=== PATIENT | female | born 1955 | race Caucasian/White ===

== ENCOUNTER 2017-02-10 19:32 | Emergency (ER) | payer MEDICAID ==
[~2017-02-10] VITALS: Ht 165.1 cm; Wt 101.6 kg
[~2017-02-10 19:32] MED LIST: ACTOS30 MG PO; ALBUTEROL0.09 MG/A2 INH; AMARYL2 MG PO; ARICEPT10 MG PO; ATARAX25 MG PO; BENTYL10 MG PO; DEXILANT60 M1 PO; EC NAPROSYN500 MG PO; EFFEXOR XR150 MG PO; EFFEXOR XR75 M1 PO; FLEXERIL5 MG PO; FLOVENT 220 M220 MCG INH; GLIMEPIRIDE4 M1 PO; HYDROCODONE BIT1 T11 PO; JANUVIA100 MG PO; JARDIANCE10 MG PO; KEFLEX500 MG PO; KENALOG 0.025%15 GM PO; LEVEMIR10 ML SC; LOMOTIL 0.025 M1 TA1 PO; Lopressor25 MG PO; MELOXICAM7.5 MG PO; NIASPAN500 MG PO; PEPCID20 MG PO; PRAVACHOL20 MG PO; PREDNICOT20 MG PO; PREDNISONE20 MG PO; PREDNISONE50 MG PO; TRILIPIX45 M1 PO; VISTARIL25 M1 PO; VITAMIN D2400 IU PO; XANAX0.25 MG PO; ZITHROMAX250 MG PO; ZOLOFT100 MG PO; ZOLPIDEM5 MG PO; ZYRTEC10 M1 PO
[2017-02-10] MEDS ORDERED: IRON325 M2 PO (19:59)
[2017-02-10] MEDS ORDERED: DITROPAN XL5 MG PO (20:00)
[2017-02-10] MEDS ORDERED: FENOFIBRATE160 MG PO (20:01)
[2017-02-10] MEDS ORDERED: PANTOPRAZOLE SO20 MG PO (20:02)
[2017-02-10] MEDS ORDERED: PRAVACHOL40 MG PO (20:02)
[2017-02-10] MEDS ORDERED: ARICEPT10 M1 PO (20:04)
[2017-02-10] MEDS ORDERED: ABILIFY10 MG PO (20:04)
[2017-02-10] MEDS ORDERED: VITAMIN D1000 IU PO (20:05)
[2017-02-10] MEDS ORDERED: ASPIR LOW81 MG PO (20:05)
[2017-02-10] MEDS ORDERED: NOVOLOG FLEX100 U/ML SC (20:09)
[2017-02-10 20:40] LABS: HEMATOCRIT 44.9 % (37.0-47.0); HEMOGLOBIN 15.1 g/dl (12.0-16.0); MEAN CELL VOLUME 93.9 fl (81.0-99.0); MEAN CORPUSCULAR HGB 31.6 pg (27.0-31.0); MEAN CORPUSCULAR HGB CONC 33.6 g/dl (33.0-37.0); MEAN PLATELET VOLUME 9.5 fl (9.6-12.3); PLATELET COUNT AUTOMATED 291 10*3/uL (130-400); RED BLOOD COUNT 4.78 10*6/uL (4.10-5.10); RED CELL DISTRI WIDTH 14.1 % (0-14.5)
[2017-02-10 20:55] LABS: ALBUMIN 3.9 gm/dl (3.1-4.5); ALKALINE PHOSPHATASE 97 U/L (45-117); BILIRUBIN, TOTAL 0.3 mg/dl (0.2-1.0); BUN 13 mg/dl (7-24); CARBON DIOXIDE 25 mmol/L (21-32); CHLORIDE 92 mmol/L (98-107); EST GLOM FILT AFRICAN AMERICAN > 60 ml/min; GLUCOSE 251 mg/dL (65-99); POTASSIUM 4.1 mmol/L (3.5-5.1); SGOT/AST 22 IU/L (3-35); SGPT/ALT 24 U/L (12-78); SODIUM 133 mmol/L (136-145); TOTAL PROTEIN 8.1 gm/dL (6.4-8.2)
[2017-02-10 21:01] LABS: EOSINOPHIL # 0.6 10*3/uL (0-0.4); EOSINOPHILS 4 % (1-4); LYMPHOCYTE # 5.3 10*3/uL (1.3-4.4); MONOCYTE # 0.7 10*3/uL (0.1-1.0); NEUTROPHIL # 7.4 10*3/uL (2.3-7.9); NEUTROPHILS 53 % (47-73); PLATELET SUFFICIENCY NORMAL (NORMAL); TOTAL CELLS COUNTED 100 #CELLS
[2017-02-10 22:34] LABS: BILIRUBIN NEGATIVE (NEGATIVE); BLOOD NEGATIVE (NEGATIVE); CLARITY SL CLOUDY (CLEAR); COLOR YELLOW (YELLOW); GLUCOSE 3+ (NEGATIVE); KETONE NEGATIVE (NEGATIVE); LEUKO ESTERASE NEGATIVE (NEGATIVE); NITRITE NEGATIVE (NEGATIVE); PH 5.5 (5.0-9.0); PROTEIN NEGATIVE (NEGATIVE); SPECIFIC GRAVITY 1.015 (1.005-1.030); UROBILINOGEN 0.2 E.U./dl (0.2-1.0)
[2017-02-10 22:43] LABS: BACTERIA 4+; RBC 0-2 rbc/hpf (0-2)
[2017-02-10 22:44] LABS: URINE REFLEX COMMENT YES (NO)
[2017-02-11] MEDS ORDERED: CIPRO500 MG PO (00:10)
== END 2017-02-11 00:30 | disposition home or self-care (01) ==
LOC: ED 19:32
PROVIDERS: Physician Assistant
DX: K52.9 Noninfective gastroenteritis and colitis, unspecified (principal); F17.200 Nicotine dependence, unspecified, uncomplicated; Z88.8 Allergy status to other drugs, medicaments and biological substances; Z79.82 Long term (current) use of aspirin; Z79.899 Other long term (current) drug therapy

== ENCOUNTER 2017-04-13 20:23 | Emergency (ER) | payer MEDICAID ==
[~2017-04-13] VITALS: Ht 165.1 cm; Wt 98.0 kg
[~2017-04-13 20:23] MED LIST changes: +ABILIFY10 MG PO; +ARICEPT10 M1 PO; +ASPIR LOW81 MG PO; +CIPRO500 MG PO; +DITROPAN XL5 MG PO; +FENOFIBRATE160 MG PO; +IRON325 M2 PO; +NOVOLOG FLEX100 U/ML SC; +PANTOPRAZOLE SO20 MG PO; +PRAVACHOL40 MG PO; +VITAMIN D1000 IU PO
[2017-04-13] MEDS ORDERED: Motrin,Rufen400 MG PO (21:53)
== END 2017-04-13 21:57 | disposition home or self-care (01) ==
LOC: ED 20:23
DX: M23.91 Unspecified internal derangement of right knee (principal); F17.200 Nicotine dependence, unspecified, uncomplicated; Z90.49 Acquired absence of other specified parts of digestive tract; J44.9 Chronic obstructive pulmonary disease, unspecified; Z79.4 Long term (current) use of insulin; Z79.82 Long term (current) use of aspirin; Z79.899 Other long term (current) drug therapy; Z88.8 Allergy status to other drugs, medicaments and biological substances

== ENCOUNTER 2017-12-11 14:22 | Inpatient (IN) | payer MEDICAID ==
[~2017-12-11] VITALS: Ht 165 cm; Wt 99.0 kg
--- NOTE | ~2017-12-11 | PROC NOTE ---
[place], [place] PROCEDURE NOTE NAME: ESTHER LOW UNIT #: [id number] ROOM: [facility] DOCTOR: ELÍAS SOSA MD,ALEX BIRTHDATE: [birth year] DOS: 12/13/2017 PROCEDURE: Fiberoptic bronchoscopy. PREOPERATIVE DIAGNOSES: The patient with severe cough and wheezing with exacerbation of chronic obstructive pulmonary disease and persistent respiratory symptoms, nonresolving. POSTOPERATIVE DIAGNOSES: Multiple plugs of the mucus which was present in the endobronchial tree bilaterally, suctioned out with the help of normal saline wash without any difficulty. BLOOD LOSS: None. COMPLICATIONS: None. PROCEDURE DESCRIPTION: Informed consent obtained for the patient. The patient was brought to the OR and placed in supine position. Conscious administered by the Anesthesia Department. After achieving proper sedation, airway introduced into the mouth. Bronchoscope advanced into the airway into the laryngeal area. Epiglottis and vocal cords were seen. Vocal cord noted yellowish in color moving symmetrically with movements. The bronchoscope was advanced to vocal cord and tracheal lumen. The tracheal lumen noted with moderate amount of thick mucus secretion suctioned out to the rosendo level. The rosendo was noted sharp. Endobronchial tree for this patient was inspected subsegmental ____ bilaterally after removal of secretions from the tracheal lumen. Multiple plugs of the mucus causing partial impaction of major airways bilaterally was noted, which was cleared out with half normal saline wash without any difficulty. The procedure was well tolerated by the patient without any complication. Postoperative finding will be discussed with the patient once the patient recovered the effects of acute sedation. Based on the bronchoscopy, no change in treatment at this time will be needed. ALEX MCKINLEY MD CM:PROCNOTE:PROCEDURE NOTE [id number] ALEX SOSA MD
--- NOTE | ~2017-12-11 | PR ---
[place], [place] PROGRESS NOTE NAME: ESTHER LOW [facility] #: [id number] UNIT #: [id number] ROOM: 519 DOCTOR: ELÍAS SOSA MDALEX BIRTHDATE: [birth year] DOS: 12/13/2017 SUBJECTIVE: She is n.p.o. past midnight for bronchoscopy. She was still noted to have cough, which has been noted moderate to severe, nonproductive, and with intermittent wheezing. Denies symptoms of chest pain. Chest tightness was reported. Denies symptoms of hemoptysis. The patient has symptoms of nausea and vomiting. The patient denies any edema or pain of the lower extremity or any nausea, vomiting, diarrhea. Denies any symptoms of hematuria, headache, or any focal neurologic weakness. Remaining systems were reviewed. They were noted all negative. She was continuing corticosteroids high dose with continuation of bronchodilators and other medical treatment for the exacerbation of COPD management. OBJECTIVE: VITAL SIGNS: Normal temperature, respiratory rate 20, heart rate 93-110, blood pressure 132/70 to 137/62. The pulse oxygen saturation for the patient is on 4 liter nasal cannula, rate range between 90-93% saturation. HEENT: Examination shows head was atraumatic. Eyes nonicterus. NECK: Supple. Mild to moderate obesity. CARDIOVASCULAR: S1, S2 is audible. LUNGS: Diffuse reduction in breath sounds with expiratory wheezing, no crackles. ABDOMEN: Soft with moderate obesity. Bowel sounds present. EXTREMITIES: Without any edema, clubbing or cyanosis. SKIN: Visible skin, no lesions or rashes. MUSCULOSKELETAL: Without any acute deformities. LABORATORY DATA: The CMP of the patient that was done this morning, glucose 316, BUN 22, creatinine was normal, and sodium 134. CBC: WBC count 15.7, hemoglobin and hematocrit normal, and platelet count were normal. IMPRESSION: 1. Persistent acute severe exacerbation of chronic obstructive pulmonary disease. The patient with acute tracheobronchitis with nonproductive cough, suspected mucus impaction, pulmonary embolism for bronchoscopy. 2. Sinus tachycardia secondary to exacerbation of chronic obstructive pulmonary disease. PLAN OF TREATMENT: The patient will be continued on the bronchodilators, oxygen supplementation, and other therapies as previously in progress. Continuation of the bronchodilators and other treatment therapy plan of management in progress with usual care and other therapies. Any modification treatment for the patient necessary will be done after bronchoscopy. [place], [place] PROGRESS NOTE NAME: ESTHER LOW UNIT #: [id number] ROOM: [facility] DOCTOR: ALEX SCHWAB MD BIRTHDATE: [birth year] ALEX MCKINLEY MD CM:PNTRANS [phone] ALEX SOSA MD 12/14/17 0406 interface
--- NOTE | ~2017-12-11 | PR ---
[place], [place] PROGRESS NOTE NAME: ESTHER LOW UNIT #: [id number] ROOM: 519 DOCTOR: ELÍAS SOSA MD,ALEX BIRTHDATE: [birth year] DOS: 12/15/2017 SUBJECTIVE: The patient was noted comfortable at this time, resting, continues to show improvement in the respiratory symptoms. The coughing has improved significantly. Shortness of breath has been improved. OBJECTIVE: VITAL SIGNS: Normal temperature, respiratory rate 20, heart rate 86, blood pressure 111/82. The pulse oxygen saturation 3 liters nasal cannula 95% saturation. HEENT: No acute change. NECK: Supple. CARDIOVASCULAR: S1, S2 audible. LUNGS: For the patient was noted with an occasional wheezing. There were no crackles. ABDOMEN: Soft, nontender. IMPRESSION: 1. Stable respiratory status was noted at the present time with continued improvement noted in the acute exacerbation of chronic obstructive pulmonary disease, acute bronchitis. 2. History of chronic nicotine dependence as well. PLAN OF THERAPY: The patient will be continued with current plan of therapy at this time without any changes. All other treatment to be continued as well. Usual treatments. Discharge for patient was planned for patient for home. Tapering prednisone, oral antibiotic will be prescribed. The patient would be encouraged about tobacco cessation as well. ALEX MCKINLEY MD CM:PNTRANS [phone] ALEX SOSA MD 12/16/17 0022 interface
--- NOTE | ~2017-12-11 | PR ---
[place], [place] PROGRESS NOTE NAME: ESTHER LOW UNIT #: [id number] ROOM: 519 DOCTOR: ALEX SCHWAB MD BIRTHDATE: [birth year] DOS: 12/14/2017 SUBJECTIVE: The patient was noted comfortable at this time without any acute distress. The bronchoscopy completed yesterday with significant reduction in symptoms of coughing, wheezing or shortness of breath. Denies symptoms of chest pain or hemoptysis. Denies any abdominal pain. OBJECTIVE: VITAL SIGNS: Normal temperature, respiratory rate 20, heart rate 83, blood pressure 129/58. The pulse oxygen saturation for the patient recorded as 93% on 3 liters cannula. HEENT: Examination shows [id number] obesity. NECK: Supple. CARDIOVASCULAR: S1, S2 audible. LUNGS: Scattered wheezing. Mild to moderate decreased breath sounds bilaterally. ABDOMEN: Soft, nontender. EXTREMITIES: Without any acute edema. LABORATORY DATA: Culture of the bronchial washing showed normal stephanie. Preliminary final culture results were pending. CBC today that was done 12.7. There were normal CBC, BMP. Glucose 203, BUN and creatinine were normal. IMPRESSION: 1. Status post bronchoscopy patient noted at this time with significant reduction and improvement in the respiratory symptoms were noted with removal of mucus plug and acute chronic nicotine dependence. 2. Resolving acute exacerbation of chronic obstructive pulmonary disease. 3. History of type 2 diabetes mellitus, steroid-induced hyperglycemia. PLAN OF TREATMENT: Reduce the Solu-Medrol dose for this patient to 40 mg b.i.d. at the present time. The patient could be considered for home discharge whenever is necessary. All other supportive plan of management at this time would be continued. Additional treatment changes will be done. The patient based on the progression of the illness. [place], [place] PROGRESS NOTE NAME: ESTHER LOW UNIT #: [id number] ROOM: [facility] DOCTOR: ALEX SCHWAB MD BIRTHDATE: [birth year] ALEX MCKINLEY MD CM:PNTRANS [phone] ALEX SOSA MD 12/15/17 0253 interface
--- NOTE | ~2017-12-11 | EKG ---
[place], [place] ELECTROCARDIOGRAM REPORT NAME: ESTHER LOW UNIT #: [id number] ROOM: 519 DOCTOR: ELÍAS SOSA MD,ALEX BIRTHDATE: [birth year] DOS: 12/11/2017 Electrocardiogram on the patient was done with normal sinus rhythm. Heart rate 97 beats per minute. There was no abnormal finding noted on electrocardiogram. Electrocardiogram is noted normal. ALEX MCKINLEY MD CM:EKGRPT:ELECTROCARDIOGRAM REPORT [id number] ALEX SOSA MD
--- NOTE | ~2017-12-11 | CON ---
[place], [place] REPORT OF CONSULTATION NAME: ESTHER LOW UNIT #: [id number] ROOM: 519 DOCTOR: ALEX SCHWAB MD BIRTHDATE: [birth year] DOS: 12/12/2017 PULMONARY CONSULTATION, EVALUATION, AND MANAGEMENT REASON FOR CONSULTATION: To assess the patient for ongoing exacerbation of COPD. HISTORY OF PRESENT ILLNESS: This is a 62-year-old female who has been well known to me with past history of COPD and obstructive sleep apnea disorder. The patient presented to my office. The patient is seen. The patient is getting acutely ill recently. She was seen in the office on 12/03/2017. She has been noted with findings of acute exacerbation of chronic obstructive pulmonary disease. She has been noted with ongoing illness for the past several days. The patient started with symptoms of having increased coughing, chest congestion, and progressive wheezing. The cough has been described to be severe and nonproductive. She was noted acutely ill about a week prior to assessment in the office. The patient has been started on the oral antibiotics. The patient also started on tapering prednisone. She has received Zithromax as an antibiotic. She was advised to go to the Emergency Room in case the symptoms does not resolve with current medical treatment. She denies any symptoms of chest pain at this time. The cough continued to be present, remains severe since admission of yesterday. She denies any symptoms of hemoptysis. Denies symptoms of acute chest pain. Wheezing has been noted continuously. REVIEW OF SYSTEMS: CONSTITUTIONAL: Fatigue and tiredness reported without symptoms of fever or chills. EYES: Denies any burning, redness, or tenderness. EARS, NOSE, AND THROAT SYMPTOMS Denies sore throat, hoarseness, otalgia, postnasal drainage, or epistaxis. CARDIOVASCULAR: Denies anginal pain, edema or pain of the lower extremities. GASTROINTESTINAL SYMPTOMS: Noted without any dysphagia, nausea, vomiting, diarrhea, abdominal pain, hematemesis, melena, or hematochezia. SKIN: Denies any lesions or rashes. CENTRAL NERVOUS SYSTEM: Denies dizziness, headache, diplopia, or syncopal episodes. The remaining systems of the patient were reviewed and they were noted all negative. PAST MEDICAL HISTORY: The patient was known with history of: 1. COPD. 2. Obstructive sleep apnea disorder, not adherent to the treatment. 3. Restless leg syndrome. 4. Chronic hypoxic respiratory failure, use of oxygen 2 liters with exertion and sleep. 5. Type 2 diabetes mellitus. 6. Moderate obesity with BMI 36.3. PAST SURGICAL HISTORY: 1. T and A. [place], [place] REPORT OF CONSULTATION NAME: ESTHER LOW UNIT #: [id number] ROOM: [facility] DOCTOR: ALICIA SCHWAB MDM BIRTHDATE: [birth year] 2. ____ repair for this patient. 3. Laparoscopic cholecystectomy. 4. Right knee arthroscopy. 5. Tonsillectomy. SOCIAL HISTORY: The patient is , has 3 children. Lives at home. Denies history of alcohol use or any illicit drug use. Tobacco user noted for the patient at the age of [age] years old, continues to smoke 1 pack of cigarettes per day actively. FAMILY HISTORY: Father unknown. The patient's mother at the age of [id number] from complications of COPD. MEDICATIONS: The medications which has been used by the patient at home use of ProAir HFA inhaler p.r.n. use, Spiriva, VESIcare, niacin, lisinopril, pravastatin, Protonix, fenofibrate, Amaryl, Abilify, NovoLog, sliding scale insulin, aspirin, Symbicort, Naproxen, Levemir insulin, ferrous sulfate, Effexor, and metoprolol. DRUG ALLERGIES: THE PATIENT WAS NOTED ALLERGY TO THE METFORMIN. PHYSICAL EXAMINATION: GENERAL: This is a 62-year-old female who has been currently noted to be awake and alert at the present time. VITAL SIGNS: Height for the patient noted as 5 feet 5 inches, weight 165 pounds, and BMI 36.3. HEENT: The head was noted atraumatic. Eyes nonicterus. NECK: Supple. CARDIOVASCULAR: S1, S2 is audible. No added sounds. LUNGS: The patient noted general reduction in the breath sounds. The patient noted bilateral diffuse expiratory wheezing and decreased air exchange. ABDOMEN: Soft and obese. Nontender. EXTREMITIES: The patient noted with chronic obesity. MUSCULOSKELETAL: No acute deformities. SKIN: No lesions or rashes. MUSCULOSKELETAL: Without any visual abnormality. LABORATORY DATA: Influenza A and B, nasal washing antigen in the Emergency Room yesterday noted as negative. Lactic acid 3.3, follow up lactic acid of the patient was noted at 4.6. Troponin of the patient 3 sets yesterday noted for normal. CBC yesterday on admission, WBC count 14.1, remaining CBC was normal. CMP of the patient yesterday on admission shows glucose 260, BUN 26, creatinine normal, sodium 132, and chloride of 95. The CBC of patient that was done this morning, WBC count 13.5, hemoglobin and hematocrit normal, and platelet count was normal. PT and PTT normal this morning. CMP of the patient this morning, glucose 271, BUN 17, creatinine normal, and sodium 135. LFTs normal. Review of a two-view chest x-ray of the patient that was done upon assessment in the Emergency Room noted with hyperinflation, changes of COPD without any acute visible gross pulmonary infiltration. [place], [place] REPORT OF CONSULTATION NAME: ESTHER LOW UNIT #: [id number] ROOM: [facility] DOCTOR: ELÍAS SOSA MDALEX BIRTHDATE: [birth year] IMPRESSION: 1. Failed outpatient treatment, noted progression of the symptoms with acute exacerbation of chronic obstructive pulmonary disease and history of chronic nicotine dependence. 2. History of chronic hypoxic respiratory failure. 3. Uncontrolled diabetes secondary to use of the corticosteroids. 4. Pseudohyponatremia secondary to hyperglycemia. 5. History of obstructive sleep apnea disorder, nonadherence with the treatment. 6. History of restless leg syndrome as well. PLAN OF MANAGEMENT: The patient is already getting the bronchodilator, will be continued. Solu-Medrol will be continued same dose at this time because of active wheezing. Antibiotics, the patient will be continued as previously ordered. Continue mucolytics, use of flutter valve. Bronchoscopy planned for the patient to be done in the morning. Risks and benefits of procedure has been discussed with the patient and she was agreeable for the bronchoscopy. Other plan of treatment of the patient as well. Strong suspicion of mucus impaction development in the endobronchial tree resulting in current progressive symptoms and non-resolution as an outpatient as well. Nicotine replacement therapy if the patient overcoming nicotine withdrawal. Thanks for allowing me to participate in the care of this patient. ALEX MCKINLEY MD CM:CONSTR:REPORT OF CONSULTATION 1337 12/13/17 0057 interface
[~2017-12-11 14:22] MED LIST changes: +Motrin,Rufen400 MG PO
[2017-12-11 14:32] VITALS: BP 102/68
[2017-12-11 15:03] LABS: BASO # 0.1 10*3/uL (0.0-0.1); BASO % 0.5 % (0.0-1.0); EOS # 0.2 10*3/uL (0.0-0.4); EOS % 1.3 % (1.0-4.0); HEMATOCRIT 44.7 % (37.0-47.0); HEMOGLOBIN 14.8 g/dl (12.0-16.0); LYMPH # 3.7 10*3/uL (1.3-4.4); MEAN CELL VOLUME 95.9 fl (81.0-99.0); MEAN CORPUSCULAR HGB 31.8 pg (27.0-31.0); MEAN CORPUSCULAR HGB CONC 33.1 g/dl (33.0-37.0); MEAN PLATELET VOLUME 9.6 fl (9.6-12.3); MONO # 0.7 10*3/uL (0.1-1.0); MONO % 5.1 % (3.0-9.0); NEUT # 9.4 10*3/uL (2.3-7.9); NEUT % 66.6 % (47.0-73.0); PLATELET COUNT AUTOMATED 302 10*3/uL (130-400); RED BLOOD COUNT 4.66 10*6/uL (4.10-5.10); RED CELL DISTRI WIDTH 14.4 % (0-14.5); WHITE BLOOD COUNT 14.1 10*3/uL (4.8-10.8)
[2017-12-11 15:20] LABS: ALBUMIN 3.7 gm/dl (3.1-4.5); ALKALINE PHOSPHATASE 85 U/L (45-117); BUN 26 mg/dl (7-24); CHLORIDE 95 mmol/L (98-107); CREATININE 0.95 mg/dL (0.55-1.02); POTASSIUM 4.4 mmol/L (3.5-5.1); SGOT/AST 20 IU/L (3-35); SGPT/ALT 27 U/L (12-78); SODIUM 132 mmol/L (136-145); TOTAL PROTEIN 7.6 gm/dL (6.4-8.2)
[2017-12-11 16:13] VITALS: BP 117/67
[2017-12-11 16:47] VITALS: BP 131/65
[2017-12-11 17:30] VITALS: BP 109/57
[2017-12-11] MEDS ORDERED: ZESTRIL2.5 MG PO (18:43)
[2017-12-11] MEDS ORDERED: DICYCLOMINE HCL10 MG PO (18:44)
[2017-12-11] MEDS ORDERED: VESICARE5 MG PO (18:44)
[2017-12-11] MEDS ORDERED: AMARYL4 MG PO (18:46)
[2017-12-11] MEDS ORDERED: ASPIRIN ADULT L81 M1 PO (18:47)
[2017-12-11] MEDS ORDERED: PROAIR HFA8.5 GM INH (18:48)
[2017-12-11 20:00] VITALS: BP 94/64
[2017-12-12 00:12] VITALS: BP 152/60
[2017-12-12 06:52] LABS: BASO % 0.1 % (0.0-1.0); HEMATOCRIT 39.7 % (37.0-47.0); HEMOGLOBIN 13.5 g/dl (12.0-16.0); LYMPH # 2.3 10*3/uL (1.3-4.4); LYMPH % 17.4 % (27.0-41.0); MEAN CELL VOLUME 95.9 fl (81.0-99.0); MEAN CORPUSCULAR HGB 32.6 pg (27.0-31.0); MEAN PLATELET VOLUME 9.6 fl (9.6-12.3); MONO # 0.1 10*3/uL (0.1-1.0); NEUT # 10.9 10*3/uL (2.3-7.9); PLATELET COUNT AUTOMATED 273 10*3/uL (130-400); RED BLOOD COUNT 4.14 10*6/uL (4.10-5.10); RED CELL DISTRI WIDTH 14.2 % (0-14.5); WHITE BLOOD COUNT 13.5 10*3/uL (4.8-10.8)
[2017-12-12 07:23] LABS: ACT PARTIAL THROMBO TIME 21.3 SECONDS (20.8-31.5)
[2017-12-12 07:34] LABS: CHLORIDE 99 mmol/L (98-107); POTASSIUM 4.1 mmol/L (3.5-5.1); SODIUM 135 mmol/L (136-145)
[2017-12-12 07:47] LABS: ALBUMIN 3.2 gm/dl (3.1-4.5); ALKALINE PHOSPHATASE 75 U/L (45-117); BUN 17 mg/dl (7-24); CHOLESTEROL 269 mg/dL (<200); CREATININE 1.02 mg/dL (0.55-1.02); HDL CHOLESTEROL 43 mg/dl (40-60); LDL CHOLESTEROL 165 mg/dL (9-159); PHOSPHOROUS 3.8 mg/dL (2.5-4.9); SGOT/AST 14 IU/L (3-35); SGPT/ALT 26 U/L (12-78); TOTAL PROTEIN 6.9 gm/dL (6.4-8.2); TRIGLYCERIDES 304 mg/dl (<150); VLDL CHOLESTEROL 61 mg/dL (6-40)
[2017-12-12 07:51] LABS: THYROID STIM HORMONE (HS) 0.308 uIU/ml (0.358-4.75)
[2017-12-12 08:00] VITALS: BP 136/56
[2017-12-12 12:00] VITALS: BP 136/56
[2017-12-12 16:00] VITALS: BP 128/65
[2017-12-12 20:00] VITALS: BP 105/70; BP 110/61
[2017-12-13] VITALS (9 sets, daily range): BP systolic 102–142; BP diastolic 50–84
[2017-12-13 06:51] LABS: BASO % 0.1 % (0.0-1.0); HEMATOCRIT 40.8 % (37.0-47.0); HEMOGLOBIN 13.4 g/dl (12.0-16.0); LYMPH # 2.4 10*3/uL (1.3-4.4); LYMPH % 15.6 % (27.0-41.0); MEAN CORPUSCULAR HGB 31.5 pg (27.0-31.0); MEAN CORPUSCULAR HGB CONC 32.8 g/dl (33.0-37.0); MEAN PLATELET VOLUME 9.9 fl (9.6-12.3); MONO # 0.6 10*3/uL (0.1-1.0); MONO % 3.5 % (3.0-9.0); NEUT # 12.6 10*3/uL (2.3-7.9); NEUT % 80.2 % (47.0-73.0); PLATELET COUNT AUTOMATED 269 10*3/uL (130-400); RED BLOOD COUNT 4.25 10*6/uL (4.10-5.10); RED CELL DISTRI WIDTH 14.2 % (0-14.5); WHITE BLOOD COUNT 15.7 10*3/uL (4.8-10.8)
[2017-12-13 07:03] LABS: ALBUMIN 3.1 gm/dl (3.1-4.5); ALKALINE PHOSPHATASE 66 U/L (45-117); BUN 22 mg/dl (7-24); CHLORIDE 99 mmol/L (98-107); FREE T4 1.05 ng/dl (0.76-1.46); POTASSIUM 4.4 mmol/L (3.5-5.1); SGOT/AST 18 IU/L (3-35); SGPT/ALT 24 U/L (12-78); SODIUM 134 mmol/L (136-145); TOTAL PROTEIN 6.8 gm/dL (6.4-8.2)
[2017-12-14] VITALS (7 sets, daily range): BP systolic 111–139; BP diastolic 48–68
[2017-12-14 06:49] LABS: BASO % 0.1 % (0.0-1.0); HEMATOCRIT 43.9 % (37.0-47.0); HEMOGLOBIN 14.8 g/dl (12.0-16.0); LYMPH # 2.8 10*3/uL (1.3-4.4); LYMPH % 21.7 % (27.0-41.0); MEAN CELL VOLUME 96.9 fl (81.0-99.0); MEAN CORPUSCULAR HGB 32.7 pg (27.0-31.0); MEAN CORPUSCULAR HGB CONC 33.7 g/dl (33.0-37.0); MEAN PLATELET VOLUME 9.8 fl (9.6-12.3); MONO # 0.5 10*3/uL (0.1-1.0); MONO % 4.2 % (3.0-9.0); NEUT # 9.4 10*3/uL (2.3-7.9); NEUT % 73.5 % (47.0-73.0); PLATELET COUNT AUTOMATED 285 10*3/uL (130-400); RED BLOOD COUNT 4.53 10*6/uL (4.10-5.10); RED CELL DISTRI WIDTH 14.1 % (0-14.5); WHITE BLOOD COUNT 12.7 10*3/uL (4.8-10.8)
[2017-12-14 06:57] LABS: ALBUMIN 3.2 gm/dl (3.1-4.5); BUN 20 mg/dl (7-24); CHLORIDE 96 mmol/L (98-107); POTASSIUM 4.2 mmol/L (3.5-5.1); SGOT/AST 19 IU/L (3-35); SGPT/ALT 28 U/L (12-78); SODIUM 134 mmol/L (136-145)
[2017-12-14 07:00] LABS: ALKALINE PHOSPHATASE 73 U/L (45-117); CREATININE 0.98 mg/dL (0.55-1.02); PHOSPHOROUS 3.7 mg/dL (2.5-4.9)
[2017-12-14 16:09] LABS: ACID FAST SMEAR Negative (.); ACID FAST SPEC PROCESSING Concentration (.)
[2017-12-15 07:05] LABS: BASO % 0.2 % (0.0-1.0); EOS % 0.1 % (1.0-4.0); HEMATOCRIT 43.9 % (37.0-47.0); HEMOGLOBIN 14.7 g/dl (12.0-16.0); LYMPH # 2.5 10*3/uL (1.3-4.4); LYMPH % 21.4 % (27.0-41.0); MEAN CELL VOLUME 96.3 fl (81.0-99.0); MEAN CORPUSCULAR HGB 32.2 pg (27.0-31.0); MEAN CORPUSCULAR HGB CONC 33.5 g/dl (33.0-37.0); MEAN PLATELET VOLUME 9.8 fl (9.6-12.3); MONO # 0.3 10*3/uL (0.1-1.0); MONO % 2.4 % (3.0-9.0); NEUT # 8.6 10*3/uL (2.3-7.9); PLATELET COUNT AUTOMATED 283 10*3/uL (130-400); RED BLOOD COUNT 4.56 10*6/uL (4.10-5.10); WHITE BLOOD COUNT 11.5 10*3/uL (4.8-10.8)
[2017-12-15 07:12] LABS: ALBUMIN 3.1 gm/dl (3.1-4.5); ALKALINE PHOSPHATASE 72 U/L (45-117); BUN 22 mg/dl (7-24); CHLORIDE 94 mmol/L (98-107); CREATININE 0.95 mg/dL (0.55-1.02); POTASSIUM 3.7 mmol/L (3.5-5.1); SGOT/AST 20 IU/L (3-35); SGPT/ALT 30 U/L (12-78); SODIUM 133 mmol/L (136-145)
[2017-12-15 07:13] LABS: TOTAL PROTEIN 6.9 gm/dL (6.4-8.2)
[2017-12-15 08:00] VITALS: BP 132/90
[2017-12-15 12:00] VITALS: BP 111/82
[2017-12-15] MEDS ORDERED: LEVAQUIN750 M1 PO (12:11)
[2017-12-15] MEDS ORDERED: PREDNISONE10 MG PO (12:11)
== END 2017-12-15 13:10 | disposition home or self-care (01) | DRG 871 ==
LOC: ED 14:22 → EDHOLD 16:35 → 5E 16:35
PROVIDERS: Internal Medicine; Internal Medicine Critical Care Medicine; Nurse Practitioner Family
PROC: 0BC98ZZ Extirpation of Matter from Lingula Bronchus, Via Natural or Artificial Opening Endoscopic (ICD-10-PCS; principal; 2017-12-13)
PROC: 0BC48ZZ Extirpation of Matter from Right Upper Lobe Bronchus, Via Natural or Artificial Opening Endoscopic (ICD-10-PCS; 2017-12-13)
PROC: 0BC88ZZ Extirpation of Matter from Left Upper Lobe Bronchus, Via Natural or Artificial Opening Endoscopic (ICD-10-PCS; 2017-12-13)
PROC: 0BC18ZZ Extirpation of Matter from Trachea, Via Natural or Artificial Opening Endoscopic (ICD-10-PCS; 2017-12-13)
PROC: 0BC38ZZ Extirpation of Matter from Right Main Bronchus, Via Natural or Artificial Opening Endoscopic (ICD-10-PCS; 2017-12-13)
PROC: 0BC58ZZ Extirpation of Matter from Right Middle Lobe Bronchus, Via Natural or Artificial Opening Endoscopic (ICD-10-PCS; 2017-12-13)
PROC: 0BC78ZZ Extirpation of Matter from Left Main Bronchus, Via Natural or Artificial Opening Endoscopic (ICD-10-PCS; 2017-12-13)
PROC: 0BC68ZZ Extirpation of Matter from Right Lower Lobe Bronchus, Via Natural or Artificial Opening Endoscopic (ICD-10-PCS; 2017-12-13)
PROC: 0BCB8ZZ Extirpation of Matter from Left Lower Lobe Bronchus, Via Natural or Artificial Opening Endoscopic (ICD-10-PCS; 2017-12-13)
DX: A41.9 Sepsis, unspecified organism (principal); J18.9 Pneumonia, unspecified organism; J96.21 Acute and chronic respiratory failure with hypoxia; N17.9 Acute kidney failure, unspecified; J44.0 Chronic obstructive pulmonary disease with (acute) lower respiratory infection; T17.590A Other foreign object in bronchus causing asphyxiation, initial encounter; J45.901 Unspecified asthma with (acute) exacerbation; E87.1 Hypo-osmolality and hyponatremia; E11.65 Type 2 diabetes mellitus with hyperglycemia; E87.2 Acidosis; J44.1 Chronic obstructive pulmonary disease with (acute) exacerbation; K51.919 Ulcerative colitis, unspecified with unspecified complications; R65.20 Severe sepsis without septic shock; E87.8 Other disorders of electrolyte and fluid balance, not elsewhere classified; E78.5 Hyperlipidemia, unspecified; E55.9 Vitamin D deficiency, unspecified; E66.9 Obesity, unspecified; F31.9 Bipolar disorder, unspecified; F03.90 Unspecified dementia, unspecified severity, without behavioral disturbance, psychotic disturbance, mood disturbance, and anxiety; T38.0X5A Adverse effect of glucocorticoids and synthetic analogues, initial encounter; R00.0 Tachycardia, unspecified; G47.33 Obstructive sleep apnea (adult) (pediatric); G25.81 Restless legs syndrome; I10 Essential (primary) hypertension; X58.XXXA Exposure to other specified factors, initial encounter; F17.200 Nicotine dependence, unspecified, uncomplicated; K21.9 Gastro-esophageal reflux disease without esophagitis; J20.9 Acute bronchitis, unspecified; F41.9 Anxiety disorder, unspecified; F43.0 Acute stress reaction; Y92.89 Other specified places as the place of occurrence of the external cause; Z82.49 Family history of ischemic heart disease and other diseases of the circulatory system; Z79.82 Long term (current) use of aspirin; Z79.84 Long term (current) use of oral hypoglycemic drugs; Z88.8 Allergy status to other drugs, medicaments and biological substances; Z99.81 Dependence on supplemental oxygen; Z90.49 Acquired absence of other specified parts of digestive tract; Z90.710 Acquired absence of both cervix and uterus; Z79.4 Long term (current) use of insulin; Z79.899 Other long term (current) drug therapy; Z78.9 Other specified health status; Z71.6 Tobacco abuse counseling; Z83.6 Family history of other diseases of the respiratory system; Y93.89 Activity, other specified; Y99.8 Other external cause status; Z68.36 Body mass index [BMI] 36.0-36.9, adult

== ENCOUNTER 2017-12-28 17:03 | Inpatient (IN) | payer MEDICAID ==
[~2017-12-28] VITALS: Ht 165.1 cm; Wt 98.4 kg
--- NOTE | ~2017-12-28 | PR ---
[place], [place] PROGRESS NOTE NAME: ESTHER LOW UNIT #: [id number] ROOM: 528 DOCTOR: ELÍAS SOSA MD,ALEX BIRTHDATE: [birth year] DOS: 01/01/2018 SUBJECTIVE: The patient noted comfortable at this time, doing very well for the patient at this time. Denies symptoms of chest pain, coughing, sputum expectoration, and abdominal pain. OBJECTIVE: VITAL SIGNS: Normal temperature, respiratory 20, heart rate of 98, blood pressure 140/90. Pulse oxygen saturation on 2 liters 96% saturation. HEENT: Examination shows head was atraumatic. Eyes nonicterus. NECK: Supple. CARDIOVASCULAR: S1, S2 is audible. Rate LUNGS: The lung were noted clear of any wheezing or crackles. ABDOMEN: Soft, nontender. EXTREMITIES: Without any acute edema. LABORATORY DATA: The culture of the sputum. The patient noted light growth of yeast. IMPRESSION: The patient has been noted currently stable at this time, doing very well. The patient with exacerbation of chronic obstructive pulmonary disease and other symptom, which has been improving progressively. Right upper lobe pneumonia which has responded in to the current medical management. Radiologically and clinical improvement noted. PLAN OF TREATMENT: The patient could be discharged home whenever desired for patient on oral medication. Outpatient follow up recommended for the patient about a week or 10 days. The patient was discharged. ALEX MCKINLEY MD CM:PNTRANS [phone] ALEX SOSA MD 01/01/18 1604 interface
--- NOTE | ~2017-12-28 | CON ---
[place], [place] REPORT OF CONSULTATION NAME: ESTHER LOW UNIT #: [id number] ROOM: 528 DOCTOR: ALEX SCHWAB MD BIRTHDATE: [birth year] DOS: 12/29/2017 PULMONARY CONSULTATION EVALUATION AND MANAGEMENT REASON FOR CONSULTATION: Assess the patient for recurrence of acute symptoms with possibility of acute pneumonia. HISTORY OF PRESENT ILLNESS: This is a 62-year-old white female patient who has been admitted to the hospital in November 2017. The patient was admitted to the hospital on 12/11/2017 until 12/15/2017 and treated the patient with intravenous corticosteroids, antibiotic. Nebulized bronchodilators and oxygen supplementation provided. Therapeutic bronchoscopy was done during that admission as well. The patient stated that she has been noted with the resolution of acute symptoms, who came back to the hospital on 12/28/2017 as she was noted with symptoms of dizziness with the patient running fever, shortness of breath, cold sweats and cough. The symptoms have been noted in the patient gradually in the past 2 days, started in 2 days and noted gradually progressive. She denies symptoms of hemoptysis. Denies symptoms of pain in the chest. The patient's sputum was noted essentially a small quantity of sputum production, but noted with moderate cough. REVIEW OF SYSTEMS: CONSTITUTIONAL: Fatigue and tiredness noted without any symptoms of fever or chills. EYES: Denies any burning, redness, or tenderness. EARS, NOSE, THROAT SYMPTOMS: Sore throat, hoarseness, otalgia, postnasal drainage. CARDIOVASCULAR: Denies anginal pain. Noted some symptoms of palpitation on admission, resolved. There were symptoms of angina. GASTROINTESTINAL: Dysphagia, nausea, vomiting, diarrhea, abdominal pain, hematemesis, melena, hematochezia, abnormal weight loss history. GENITOURINARY: No dysuria, suprapubic pain, or hematuria. MUSCULOSKELETAL: Denies acute joint pain. SKIN: Denies lesions or rashes. CENTRAL NERVOUS SYSTEM: No dizziness, headache, diplopia, syncopal episodes. Denies symptoms of diplopia or migraines. Remaining systems were reviewed and they were noted all negative. PAST MEDICAL HISTORY: 1. Past review of the medical record, the patient was noted with hospitalization in this hospital for 4 days, managed for acute exacerbation of COPD and acute tracheobronchitis at that time. 2. COPD. 3. Obstructive sleep apnea disorder. 4. Restless leg syndrome. 5. Chronic hypoxic respiratory failure, use of oxygen, usually 2 liters nasal cannula. 6. Type 2 diabetes mellitus. 7. Moderate obesity. [place], [place] REPORT OF CONSULTATION NAME: ESTHER LOW UNIT #: [id number] ROOM: 528 DOCTOR: ALEX SCHWAB MD BIRTHDATE: [birth year] 8. Chronic nicotine dependence. PAST SURGICAL HISTORY: 1. T and A. 2. Laparoscopic cholecystectomy. 3. Right knee arthroscopy. 4. Tonsillectomy. 5. Fibrobronchoscopy. SOCIAL HISTORY: The patient is , has 2 children, lives at home. Tobacco use noted from age of [age] years old for the patient, smoking a pack of cigarettes per day, but stated that since discharge from the hospital, she is smoking 10 cigarettes a day. Denies history of alcohol use, illicit drug use. FAMILY HISTORY: The patient's mother at the age of 67 due to complication of COPD, history about father was unknown. CURRENT MEDICATIONS: Administered on this admission noted use of IV Solu-Medrol 60 mg b.i.d., Lovenox for DVT prophylaxis, nicotine replacement patches on admission of 1200 b.i.d., IV vancomycin, Levaquin and Zosyn. DRUG ALLERGIES: ALLERGY TO METFORMIN. PHYSICAL EXAMINATION: GENERAL: A 62-year-old female who has been currently noted to be awake and alert at this time without any acute distress at the time of the assessment. The patient's height was recorded by the nursing staff to be 5 feet 5 inches, weight of 217 pounds, BMI 36. VITAL SIGNS: Temperature was noted as normal. The respiratory rate of the patient recorded 18-20, heart rate of 127-111, sinus tachycardia, blood pressure 130/72-132/90. The pulse oxygen saturation on 3 liters nasal cannula was noted 96% on room air for the patient. In the Emergency Room was 95% saturation. HEENT: Head was atraumatic. Eyes: No icterus. NECK: Supple. CARDIOVASCULAR: S1, S2 was audible. LUNGS: The patient was noted with moderate decreased breath sounds with expiratory wheezing without any crackles. ABDOMEN: Soft, nontender. Bowel sounds present. EXTREMITIES: The patient noted without any acute edema. CENTRAL NERVOUS SYSTEM: Cranial nerves 2-12 intact. No focal deficit. SKIN: No lesions or rashes. MUSCULOSKELETAL: Without any acute deformities. LABORATORY DATA: The lactic acid on 12/28/2017 was 4.4, follow up lactic acid was 3.1. The CBC for the patient on 12/28/2017, WBC count 12.9. Hemoglobin and hematocrit, and platelet count normal. CMP on 12/28/2017, glucose 215, BUN normal, creatinine was noted 1.16. Sodium 131. Remaining LFTs normal and electrolytes normal. CBC this morning, normal CBC noted. PT/PTT noted normal. CMP on 12/29/2017, glucose 372, BUN and creatinine normal, sodium 135. Chest x-ray, one-view, did show changes of COPD without any acute infiltration. CT of [place], [place] REPORT OF CONSULTATION NAME: ESTHER LOW UNIT #: [id number] ROOM: 528 DOCTOR: ELÍAS SOSA MD,[facility] BIRTHDATE: [birth year] the chest that was done for this patient was personally reviewed shows 8 mm subpleural nodule was noted in the left upper lobe. A small infiltration noted in the posterior subsegment of the right upper lobe for this patient as well. Changes of centrilobular emphysema was also noted. There was no lymphadenopathy seen. There were no pleural effusions. CT scan images were personally assessed from the PACS images directly. IMPRESSION: 1. The patient will be currently admitted to the hospital. The patient was noted with acute recurrent exacerbation of chronic obstructive pulmonary disease with history of chronic hypoxic respiratory failure. 2. The patient with history of chronic nicotine dependence as well. 3. Right upper lobe pneumonia with possibility of sepsis as well. 4. The patient with chronic nicotine dependence as well. 5. Uncontrolled diabetes mellitus with history of diabetes mellitus as well. 6. History of essential hypertension. PLAN OF MANAGEMENT: The patient is getting three broad spectrum intravenous antibiotic at this time. I will discontinue the vancomycin and the IV Zosyn. Continue the patient on Levaquin as the only antibiotic with monitoring of the respiratory status to be continued. Continuation of bronchodilators and oxygen supplementation as well as the corticosteroids remains unchanged. Other plan of treatment on the patient will be changed based on progression of the illness. The solitary pulmonary nodule, which was noted would be monitored as an outpatient with followup CT scans of the chest. Long discussion and counseling about tobacco cessation was done with the patient. The patient is stating that she will discontinue tobacco use after this hospitalization. ALEX MCKINLEY MD CM:CONSTR:REPORT OF CONSULTATION 1324 12/29/17 1549 interface
--- NOTE | ~2017-12-28 | PR ---
[place], [place] PROGRESS NOTE NAME: ESTHER LOW UNIT #: [id number] ROOM: 528 DOCTOR: ELÍAS SOSA MD,ALEX BIRTHDATE: [birth year] DOS: 12/30/2017 PULMONARY FOLLOWUP SUBJECTIVE: The patient was seen and examined on 12/30/2017. She has been noted comfortable at this time without acute distress and resting. Shortness breath, cough and other symptoms have been improving. Denies any fever or chills. OBJECTIVE: GENERAL: Mild to moderate obesity. VITAL SIGNS: Normal temperature, respiratory rate 20, heart rate 105, blood pressure 131/57. The pulse oxygen saturation on 2 L nasal cannula ranges between 91-96% saturation. HEENT: Head was atraumatic. Eyes, nonicterus. NECK: Supple. CARDIOVASCULAR: S1, S2 is audible. LUNGS: The patient was noted without any crackles. Mild expiratory wheezing noted in the lungs bilaterally. ABDOMEN: Soft, nontender. Bowel sounds present. EXTREMITIES: Showed chronic obesity. IMPRESSION: The patient with acute right upper lobe pneumonia with sepsis, exacerbation of chronic obstructive pulmonary disease, and acute chronic nicotine dependence. PLAN OF TREATMENT: Dose of Solu-Medrol will be decreased at this time to 40 mg b.i.d. Continue current antibiotics. Bronchodilator treatment plan and management. Obtain a chest x-ray in the morning to reassess and then possible consideration for home discharge depending further improvement in the respiratory status. ALEX MCKINLEY MD CM:LEON [id number] ALEX SOSA MD 12/30/17 1311 interface
--- NOTE | ~2017-12-28 | EKG ---
[place], [place] ELECTROCARDIOGRAM REPORT NAME: ESTHER LOW UNIT #: [id number] ROOM: 528 DOCTOR: ALEX SCHWAB MD BIRTHDATE: [birth year] DOS: 12/28/2017 ELECTROCARDIOGRAM TIME: 5:21 p.m. Sinus tachycardia noted, heart rate 117 beats per minute. No elective cardiac abnormalities were noted. ALEX MCKINLEY MD CM:EKGRPT:ELECTROCARDIOGRAM REPORT [id number] ALEX SOSA MD
--- NOTE | ~2017-12-28 | PR ---
[place], [place] PROGRESS NOTE NAME: ESTHER LOW UNIT #: [id number] ROOM: 528 DOCTOR: ELÍAS SOSA MD,ALEX BIRTHDATE: [birth year] DOS: 12/31/2017 SUBJECTIVE: She has been complaining of dizziness, but the respiratory symptoms have been improving. Denies symptoms of chest pain or hemoptysis. The patient denies symptoms of wheezing. OBJECTIVE: VITAL SIGNS: For the patient which has been recorded showed the temperature remains normal, respiratory rate 20, heart rate 116-98, blood pressure 94/64 to 111/64. The pulse oxygen saturation for the patient on room air was 94% saturation. HEENT: Examination shows head was atraumatic. Eyes nonicterus. NECK: Supple. CARDIOVASCULAR: S1, S2 is audible. LUNGS: Noted free of any wheezing or crackles. ABDOMEN: Soft and nontender. EXTREMITIES: Without any acute edema. LABORATORY DATA: Culture of the sputum preliminary showed no bacterial growth. Chest x-ray of the patient that was done this morning shows significant improvement and resolution of the right upper lung infiltration. IMPRESSION: 1. Resolving acute small pneumonia. 2. The patient with evidence of chronic obstructive pulmonary disease as well. 3. History of past nicotine use. PLAN OF MANAGEMENT AND THERAPIES: No changes in the plan of therapy at this time will be necessary. Continuation of current therapy, plan of management and care. Additional treatment changes will be made based on progression of illness. ALEX MCKINLEY MD CM:PNTRANS [id number] ALEX SOSA MD 12/31/17 170 interface
[~2017-12-28 17:03] MED LIST changes: +AMARYL4 MG PO; +ASPIRIN ADULT L81 M1 PO; +DICYCLOMINE HCL10 MG PO; +LEVAQUIN750 M1 PO; +PREDNISONE10 MG PO; +PROAIR HFA8.5 GM INH; +VESICARE5 MG PO; +ZESTRIL2.5 MG PO
[2017-12-28 17:10] VITALS: BP 101/75
[2017-12-28 17:23] LABS: BASO % 0.2 % (0.0-1.0); EOS % 0.3 % (1.0-4.0); HEMATOCRIT 44.6 % (37.0-47.0); HEMOGLOBIN 14.7 g/dl (12.0-16.0); LYMPH % 23.1 % (27.0-41.0); MEAN CELL VOLUME 95.7 fl (81.0-99.0); MEAN CORPUSCULAR HGB 31.5 pg (27.0-31.0); MEAN PLATELET VOLUME 9.5 fl (9.6-12.3); MONO # 0.4 10*3/uL (0.1-1.0); MONO % 3.4 % (3.0-9.0); NEUT # 9.4 10*3/uL (2.3-7.9); NEUT % 72.5 % (47.0-73.0); PLATELET COUNT AUTOMATED 235 10*3/uL (130-400); RED BLOOD COUNT 4.66 10*6/uL (4.10-5.10); RED CELL DISTRI WIDTH 14.6 % (0-14.5); WHITE BLOOD COUNT 12.9 10*3/uL (4.8-10.8)
[2017-12-28 17:40] LABS: ALBUMIN 3.5 gm/dl (3.1-4.5); ALKALINE PHOSPHATASE 70 U/L (45-117); BUN 18 mg/dl (7-24); CHLORIDE 95 mmol/L (98-107); CREATININE 1.16 mg/dL (0.55-1.02); POTASSIUM 4.4 mmol/L (3.5-5.1); SGOT/AST 31 IU/L (3-35); SGPT/ALT 42 U/L (12-78); SODIUM 131 mmol/L (136-145); TOTAL PROTEIN 7.3 gm/dL (6.4-8.2)
[2017-12-28 17:42] LABS: TROPONIN I < 0.015 ng/ml (<0.045)
[2017-12-28 18:00] VITALS: BP 104/70
[2017-12-28 18:22] LABS: BILIRUBIN NEGATIVE (NEGATIVE); BLOOD NEGATIVE (NEGATIVE); CLARITY CLEAR (CLEAR); COLOR YELLOW (YELLOW); GLUCOSE 3+ (NEGATIVE); KETONE NEGATIVE (NEGATIVE); LEUKO ESTERASE NEGATIVE (NEGATIVE); NITRITE NEGATIVE (NEGATIVE); UROBILINOGEN 0.2 E.U./dl (0.2-1.0)
[2017-12-28 18:30] VITALS: BP 98/60
[2017-12-28 18:34] LABS: BACTERIA TRACE; EPITHELIAL CELLS 15-20; WBC 0-2 wbc/hpf (0-5)
[2017-12-28 18:58] VITALS: BP 101/70
[2017-12-28 19:42] VITALS: BP 112/72
[2017-12-28 20:27] VITALS: BP 93/47
[2017-12-29] VITALS: BP 133/60; BP 138/73
[2017-12-29 06:11] LABS: BASO % 0.2 % (0.0-1.0); EOS % 0.2 % (1.0-4.0); HEMATOCRIT 39.9 % (37.0-47.0); HEMOGLOBIN 13.3 g/dl (12.0-16.0); LYMPH # 1.4 10*3/uL (1.3-4.4); LYMPH % 13.6 % (27.0-41.0); MEAN CELL VOLUME 97.1 fl (81.0-99.0); MEAN CORPUSCULAR HGB 32.4 pg (27.0-31.0); MEAN CORPUSCULAR HGB CONC 33.3 g/dl (33.0-37.0); MEAN PLATELET VOLUME 9.7 fl (9.6-12.3); MONO # 0.1 10*3/uL (0.1-1.0); MONO % 0.7 % (3.0-9.0); NEUT # 8.9 10*3/uL (2.3-7.9); NEUT % 84.7 % (47.0-73.0); PLATELET COUNT AUTOMATED 207 10*3/uL (130-400); RED BLOOD COUNT 4.11 10*6/uL (4.10-5.10); RED CELL DISTRI WIDTH 14.5 % (0-14.5); WHITE BLOOD COUNT 10.5 10*3/uL (4.8-10.8)
[2017-12-29 06:41] LABS: ACT PARTIAL THROMBO TIME 21.1 SECONDS (20.8-31.5)
[2017-12-29 06:43] LABS: ALBUMIN 2.9 gm/dl (3.1-4.5); BUN 16 mg/dl (7-24); CHLORIDE 100 mmol/L (98-107); CREATININE 0.78 mg/dL (0.55-1.02); PHOSPHOROUS 4.1 mg/dL (2.5-4.9); POTASSIUM 4.3 mmol/L (3.5-5.1); SGOT/AST 18 IU/L (3-35); SGPT/ALT 34 U/L (12-78); SODIUM 135 mmol/L (136-145); TOTAL PROTEIN 6.3 gm/dL (6.4-8.2)
[2017-12-29 06:44] LABS: ALKALINE PHOSPHATASE 56 U/L (45-117)
[2017-12-29 07:54] VITALS: BP 138/72
[2017-12-29 12:00] VITALS: BP 110/56
[2017-12-29 17:23] VITALS: BP 134/69
[2017-12-29 20:00] VITALS: BP 125/65
[2017-12-30] VITALS: BP 131/57
[2017-12-30 06:11] LABS: BASO % 0.1 % (0.0-1.0); HEMATOCRIT 38.9 % (37.0-47.0); HEMOGLOBIN 12.8 g/dl (12.0-16.0); LYMPH # 1.4 10*3/uL (1.3-4.4); LYMPH % 10.2 % (27.0-41.0); MEAN CELL VOLUME 96.5 fl (81.0-99.0); MEAN CORPUSCULAR HGB 31.8 pg (27.0-31.0); MEAN CORPUSCULAR HGB CONC 32.9 g/dl (33.0-37.0); MEAN PLATELET VOLUME 10.1 fl (9.6-12.3); MONO # 0.2 10*3/uL (0.1-1.0); MONO % 1.6 % (3.0-9.0); NEUT % 87.2 % (47.0-73.0); PLATELET COUNT AUTOMATED 207 10*3/uL (130-400); RED BLOOD COUNT 4.03 10*6/uL (4.10-5.10); RED CELL DISTRI WIDTH 14.6 % (0-14.5); WHITE BLOOD COUNT 13.8 10*3/uL (4.8-10.8)
[2017-12-30 06:21] LABS: BUN 15 mg/dl (7-24); CHLORIDE 97 mmol/L (98-107); CREATININE 0.88 mg/dL (0.55-1.02); POTASSIUM 4.5 mmol/L (3.5-5.1); SODIUM 135 mmol/L (136-145)
[2017-12-30 08:00] VITALS: BP 106/72
[2017-12-30] MEDS ORDERED: SYMB160 INH (11:54)
[2017-12-30] MEDS ORDERED: ZOFRAN4 MG PO (11:54)
[2017-12-30] MEDS ORDERED: SPIRIVA18 MCG PO (11:55)
[2017-12-30] MEDS ORDERED: VITAMIN D31000 UNI1 PO (11:55)
[2017-12-30 12:00] VITALS: BP 154/68
[2017-12-30 16:00] VITALS: BP 110/70
[2017-12-30 20:17] VITALS: BP 97/69
[2017-12-31 00:09] VITALS: BP 111/64
[2017-12-31 08:00] VITALS: BP 94/64
[2017-12-31 12:00] VITALS: BP 114/50
[2017-12-31 16:00] VITALS: BP 126/76
[2018-01-01] VITALS: BP 98/58
[2018-01-01 06:22] LABS: BASO % 0.1 % (0.0-1.0); EOS % 0.1 % (1.0-4.0); HEMATOCRIT 41.7 % (37.0-47.0); HEMOGLOBIN 13.6 g/dl (12.0-16.0); LYMPH # 1.7 10*3/uL (1.3-4.4); LYMPH % 18.9 % (27.0-41.0); MEAN CELL VOLUME 98.1 fl (81.0-99.0); MEAN CORPUSCULAR HGB CONC 32.6 g/dl (33.0-37.0); MONO # 0.2 10*3/uL (0.1-1.0); MONO % 2.5 % (3.0-9.0); NEUT # 7.2 10*3/uL (2.3-7.9); NEUT % 77.9 % (47.0-73.0); PLATELET COUNT AUTOMATED 233 10*3/uL (130-400); RED BLOOD COUNT 4.25 10*6/uL (4.10-5.10); RED CELL DISTRI WIDTH 14.8 % (0-14.5); WHITE BLOOD COUNT 9.2 10*3/uL (4.8-10.8)
[2018-01-01 06:52] LABS: BUN 21 mg/dl (7-24)
[2018-01-01 06:55] LABS: ALKALINE PHOSPHATASE 63 U/L (45-117); CHLORIDE 96 mmol/L (98-107); CREATININE 1.05 mg/dL (0.55-1.02); SGOT/AST 18 IU/L (3-35); SGPT/ALT 32 U/L (12-78); SODIUM 134 mmol/L (136-145); TOTAL PROTEIN 6.8 gm/dL (6.4-8.2)
[2018-01-01 08:00] VITALS: BP 104/90
[2018-01-01 12:00] VITALS: BP 108/72
[2018-01-01] MEDS ORDERED: PREDNISONE10 MG PO (13:09)
[2018-01-01] MEDS ORDERED: LEVAQUIN750 M1 PO (13:09)
== END 2018-01-01 14:58 | disposition home or self-care (01) | DRG 871 ==
LOC: ED 17:03 → 5E 18:52 → EDHOLD 18:52 → 5E 19:24
PROVIDERS: Family Medicine; Internal Medicine; Registered Nurse
DX: A41.9 Sepsis, unspecified organism (principal); J18.1 Lobar pneumonia, unspecified organism; J96.11 Chronic respiratory failure with hypoxia; E44.0 Moderate protein-calorie malnutrition; E87.2 Acidosis; K51.919 Ulcerative colitis, unspecified with unspecified complications; E87.1 Hypo-osmolality and hyponatremia; Z99.81 Dependence on supplemental oxygen; E11.65 Type 2 diabetes mellitus with hyperglycemia; J44.0 Chronic obstructive pulmonary disease with (acute) lower respiratory infection; J44.1 Chronic obstructive pulmonary disease with (acute) exacerbation; R65.20 Severe sepsis without septic shock; E55.9 Vitamin D deficiency, unspecified; F41.9 Anxiety disorder, unspecified; F31.9 Bipolar disorder, unspecified; F17.210 Nicotine dependence, cigarettes, uncomplicated; G25.81 Restless legs syndrome; G47.33 Obstructive sleep apnea (adult) (pediatric); R91.1 Solitary pulmonary nodule; E78.5 Hyperlipidemia, unspecified; Z71.6 Tobacco abuse counseling; Z91.14 Patient's other noncompliance with medication regimen; Z79.4 Long term (current) use of insulin; Z79.899 Other long term (current) drug therapy; Z68.36 Body mass index [BMI] 36.0-36.9, adult; Z90.49 Acquired absence of other specified parts of digestive tract; Z88.8 Allergy status to other drugs, medicaments and biological substances; Z82.5 Family history of asthma and other chronic lower respiratory diseases; Z82.49 Family history of ischemic heart disease and other diseases of the circulatory system; E66.8 Other obesity

== ENCOUNTER 2018-01-16 13:38 | Emergency (ER) | payer MEDICAID ==
[~2018-01-16] VITALS: Ht 165.1 cm; Wt 98.9 kg
[~2018-01-16 13:38] MED LIST changes: +SPIRIVA18 MCG PO; +SYMB160 INH; +VITAMIN D31000 UNI1 PO; +ZOFRAN4 MG PO
[2018-01-16] MEDS ORDERED: NAPROSYN500 MG PO (16:41)
== END 2018-01-16 16:46 | disposition home or self-care (01) ==
LOC: ED 13:38
DX: M17.0 Bilateral primary osteoarthritis of knee (principal); F17.200 Nicotine dependence, unspecified, uncomplicated; J44.9 Chronic obstructive pulmonary disease, unspecified; E11.65 Type 2 diabetes mellitus with hyperglycemia; E78.5 Hyperlipidemia, unspecified; E66.9 Obesity, unspecified; Z68.39 Body mass index [BMI] 39.0-39.9, adult; Z99.81 Dependence on supplemental oxygen; Z79.899 Other long term (current) drug therapy; Z79.4 Long term (current) use of insulin; Z90.49 Acquired absence of other specified parts of digestive tract; Z98.890 Other specified postprocedural states; Z79.82 Long term (current) use of aspirin; Z88.8 Allergy status to other drugs, medicaments and biological substances

== ENCOUNTER 2018-03-08 21:10 | Emergency (ER) | payer MEDICAID ==
[~2018-03-08] VITALS: Ht 165.1 cm; Wt 98.9 kg
[~2018-03-08 21:10] MED LIST changes: +NAPROSYN500 MG PO
[2018-03-08] MEDS ORDERED: VOLTAREN100 GM T (23:01)
== END 2018-03-08 23:03 | disposition home or self-care (01) ==
LOC: ED 21:10
DX: M51.86 Other intervertebral disc disorders, lumbar region (principal); M25.562 Pain in left knee; M25.552 Pain in left hip; F17.200 Nicotine dependence, unspecified, uncomplicated; J44.9 Chronic obstructive pulmonary disease, unspecified; E11.65 Type 2 diabetes mellitus with hyperglycemia; E66.9 Obesity, unspecified; M17.0 Bilateral primary osteoarthritis of knee; Z79.4 Long term (current) use of insulin; Z68.39 Body mass index [BMI] 39.0-39.9, adult; Z79.82 Long term (current) use of aspirin; Z90.49 Acquired absence of other specified parts of digestive tract; Z90.710 Acquired absence of both cervix and uterus; Z98.890 Other specified postprocedural states; Z79.899 Other long term (current) drug therapy; Z88.8 Allergy status to other drugs, medicaments and biological substances